=== PATIENT | female | born 1960 | race African-American/Black ===

== ENCOUNTER 2016-09-28 16:21 | Inpatient (IN) ==
[2016-09-28] MEDS ORDERED: ASPIRIN PO STA (17:20)
[2016-09-28 17:43] LABS: BASO% 0.4 % (0.0-0.8); EOS# 0.49 X1000 (0.0-0.7); EOS% 6.6 % (0.0-10.0); HEMATOCRIT 32.7 % (37.0-47.0); HEMOGLOBIN 10.4 g/dL (12.0-16.0); LYMPH# 1.65 X1000 (1.2-3.4); LYMPH% 22.2 % (20.5-51.1); MANUAL DIFF NEEDED? NO; MCH 23.8 PG (27-31); MCHC 31.8 g/dL (33-37); MCV 74.8 FL (81-99); MONO# 0.46 X1000 (0.11-0.59); MONO% 6.2 % (1.7-9.3); NEUT% 64.6 % (42.2-75.2); PLT 214 X1000 (130-400); RBC 4.37 XMIL (4.2-5.4)
[2016-09-28 17:49] LABS: INR 1.02; PROTIME 10.7 Seconds (9.2-11.7); PTT 25.6 Seconds (22.0-36.0)
[2016-09-28 17:56] LABS: ALBUMIN 3.8 g/dL (3.5-5.0); CALCIUM 9.4 mg/dL (8.8-10.2); MAGNESIUM 2.1 mg/dL (1.5-2.7); POTASSIUM 4.1 mmol/L (3.5-5.1); TOTAL BILIRUBIN 0.57 mg/dL (0.20-1.00); TOTAL PROTEIN 6.7 g/dL (6.3-8.3)
[2016-09-28] MEDS ORDERED: LASIX IV ONE ×2 (18:44→19:09)
--- NOTE | 2016-09-28 19:05 | Diag Imaging Result Doc PS360 ---
EXAM: CHEST-2 VIEWS HISTORY: SOB TECHNIQUE: PA and lateral COMMENT: There is cardiomegaly and pulmonary vascular prominence. This has not changed significantly since 09/17/2016. There is interstitial fibrosis and coarser fibrotic scar formation in the left upper lobe and right lower lobe. Overall there has been no significant change in the appearance of the chest since 11/22/2015. IMPRESSION: Stable chest. Electronically signed by Kenney Jones 09/28/2016 7:03 PM
[2016-09-28] MEDS ORDERED: NITROGLYCERIN TOP ONE (19:07)
[2016-09-28] MEDS ORDERED: XANAX PO PRN (22:01)
[2016-09-28] MEDS ORDERED: ZOFRAN IV PRN (22:01)
[2016-09-28] MEDS ORDERED: TYLENOL PO PRN (22:01)
[2016-09-28] MEDS ORDERED: APRESOLINE IV PRN (22:56)
[2016-09-28] MEDS: COREG PO SCH (23:39)
[2016-09-28] MEDS: AMBIEN PO SCH (23:39)
[2016-09-28] MEDS: DESYREL PO SCH (23:42)
--- NOTE | 2016-09-29 03:46 | HISTORY AND PHYSICAL ---
CHIEF COMPLAINT: Shortness of breath. HISTORY OF PRESENT ILLNESS: Briefly, this is a 56-year-old female with hypertension, diabetes, end-stage renal, who presents with progressive shortness of breath for the last several days. She has been to the ER. She was in the ER about a week ago, and thought to have bronchitis. I think she saw Dr. Albert aguilera, and she was given an IM dose of antibiotic. She felt she was volume overloaded. She has been getting dialysis. She has not missed any treatments. As far she knows, she has not had any change in her dialysis duration or amount of fluid taken off. She says in fact she has lost some weight. She came in today for evaluation. Really, workup was pretty unremarkable, except her blood pressure was a little bit elevated, but really not that bad. Her saturations were okay. Her chest x-ray is stable. She has some cardiomegaly and some pulmonary vascular congestion. I think she saw Dr. Gloria, and he told her to come in and get evaluated. She was due apparently to see the feather shaper on the . There was some discussion of putting in, I do not know if it is a pacemaker or defibrillator, but at this point, it was not a planned event at this point. In any case, patient had some degree of volume overload on x-ray and was symptomatic. She does report orthopnea, paroxysmal nocturnal dyspnea, increasing lower extremity edema, and she was admitted for volume overload issues related to her kidney failure, possibly some underlying heart failure. She does have some mild systolic heart failure, combined with diastolic failure most likely, because she has got significant left ventricular hypertrophy per her echo in October of last year. PAST MEDICAL HISTORY: 1. End-stage renal. 2. Hypertension. 3. Diabetes. PAST SURGICAL HISTORY: She has had a hysterectomy. FAMILY HISTORY: Mother and father had CHF issues. ALLERGIES: Docusate. MEDICATIONS: She is on Xanax 0.5 b.i.d., Norvasc 10 daily, Coreg 6.25 b.i.d., hydralazine 50 daily, Lantus 40 daily, Humalog 5 t.i.d., Imdur 30 daily, Reglan 10 daily, Protonix 40 daily, Desyrel 50 at bedtime, Ambien 5 mg at bedtime. REVIEW OF SYSTEMS: Otherwise negative times a 10-point review of systems. PHYSICAL EXAMINATION: VITAL SIGNS: Blood pressure currently 156/82, heart rate of 82, respiratory rate 18, temperature 97.9 degrees, 99% on room air. CARDIOVASCULAR: Regular rate and rhythm. PULMONARY: Bilateral breath sounds. Clear to auscultation. GASTROINTESTINAL: Soft, nontender, nondistended. Bowel sounds were positive. LABORATORY DATA: White count of 7. Hemoglobin and hematocrit 10 and 32, platelets 214,000. Coagulation studies were normal. BUN and creatinine 29 and 7.1. Glucose of 275. ProBNP of 23,668. Her CPK was normal. Her troponin was mildly elevated. ASSESSMENT: This is a 56-year-old female, end-stage renal, presenting with shortness of breath and a mild pulmonary edema and vascular congestion. 1. Volume overload, pulmonary edema. She was given high-dose Lasix in the ER, but really has not had much urine output. I think she got a total of it looks like 300 mg. Obviously, she will need dialysis, which her usual day is tomorrow, so she will get dialyzed per Dr. Gloria. He has been consulted, and will evaluate for other issues. She may have some diastolic and systolic heart failure. I am going to repeat her echocardiogram, trend her enzymes, monitor on telemetry, and we will follow. 2. Diabetes. Continue her regular medications. Monitor her blood sugars. Check an A1c. Continue sliding scale insulin. 3. Hypertension. I am going to go up on her hydralazine to 50 b.i.d. 4. Anemia, likely related to chronic renal disease. We will continue to monitor. It is not any lower than it has been previously, so I do not think that is really contributing very much. It is certainly not low enough to consider transfusion. DISPOSITION: Pending her multiple issues. cc: MD Ankush Villatoro MD Dr. Thomas
[2016-09-29] MEDS: HUMALOG SUBQ SCH ×3 (06:32→16:15)
[2016-09-29] MEDS: PROTONIX PO SCH (06:34)
[2016-09-29] MEDS: HUMULIN R SUBQ SCH ×4 (06:35→21:05)
[2016-09-29 07:04] LABS: HEMATOCRIT 32.7 % (37.0-47.0); HEMOGLOBIN 10.2 g/dL (12.0-16.0); MCH 23.8 PG (27-31); MCHC 31.2 g/dL (33-37); MCV 76.2 FL (81-99); PLT 210 X1000 (130-400); RBC 4.29 XMIL (4.2-5.4)
[2016-09-29 07:12] LABS: IRON SATURATION 21 %; TIBC 190 ug/dL; TOTAL IRON 39 ug/dL (49-151); UNBOUND IRON 151 ug/dL (112-346)
[2016-09-29 07:15] LABS: CALCIUM 9.5 mg/dL (8.8-10.2); POTASSIUM 4.8 mmol/L (3.5-5.1)
[2016-09-29 07:18] LABS: HEMOGLOBIN A1C 9.2 % (4.8-6.0)
[2016-09-29] MEDS ORDERED: TIGHT: 0.2 ML/HR MISC PRN (08:14)
[2016-09-29] MEDS ORDERED: HEPARIN IV PRN (08:14)
[2016-09-29] MEDS ORDERED: NS 2,000 ML MISC PRN (08:14)
[2016-09-29] MEDS ORDERED: APRESOLINE PO SCH (09:00)
[2016-09-29] MEDS ORDERED: REGLAN PO SCH (09:00)
[2016-09-29] MEDS ORDERED: NS 2,000 ML ONE (09:34)
[2016-09-29] MEDS ORDERED: HEPARIN ONE (09:34)
[2016-09-29] MEDS: COREG PO SCH ×2 (11:27→21:58)
[2016-09-29] MEDS: APRESOLINE PO SCH ×2 (11:27→21:57)
[2016-09-29] MEDS: LANTUS SUBQ SCH (11:28)
[2016-09-29] MEDS: NORVASC PO SCH (11:28)
[2016-09-29] MEDS: IMDUR PO SCH (11:28)
--- NOTE | 2016-09-29 14:48 | PROGRESS NOTE ---
DATE: 09/29/2016 SUBJECTIVE: The patient is sitting up in bed. She states that she is hungry. OBJECTIVE: Vital Signs: Temperature 98.3 degrees, blood pressure 147/88, heart rate 74, respirations 20, O2 saturations 98% on 2 L nasal cannula. General: This is a morbidly obese female, sitting up in bed, in no acute distress. Head: Normocephalic, atraumatic. Heart: S1, S2. Normal. Regular rate and rhythm. Lungs: Equal air entry bilaterally. Abdomen: Positive bowel sounds. Soft, obese, nontender, nondistended. Extremities: +1 edema. No cyanosis. No calf tenderness. Neurologic: The patient is alert and oriented x3. LABORATORY DATA: White blood cell count 9, hemoglobin 10, hematocrit 32, platelets 210,000. Sodium 135, potassium 4.8, chloride 95, CO2 of 25. BUN 37, creatinine 8.2, glucose 218. ASSESSMENT AND PLAN: 1. Volume overload. This will be addressed during dialysis. 2. End-stage renal disease. Management as per the shipping hand. 3. Diabetes mellitus, type 2, uncontrolled. Continue on Lantus plus sliding scale insulin. 4. Hypertension, controlled. Continue on the current antihypertensives. 5. Morbid obesity, aware. 6. Gastroesophageal reflux disease. Continue on Protonix. 7. Deep vein thrombosis prophylaxis. I will start the patient on heparin 5000 units subcutaneous every 12 hours. cc: Kianna Patterson MD
--- NOTE | 2016-09-29 18:03 | CONSULTATION ---
DATE OF CONSULTATION: 09/29/2016 REASON FOR CONSULTATION: Assistance with management. HISTORY OF PRESENT ILLNESS: Ms. El is a 56-year-old black female who is on chronic hemodialysis for management of end stage kidney disease associated with diabetes and hypertension. She has been complaining of shortness of breath and we have attempted to lower her dry weight at the outpatient center but she has had limitations based on cramping. Her symptoms have persisted but she does not have chest pain or palpitations. She came to the hospital at [place] and I directed her to [facility] where she was admitted. She had dialysis this morning that lowered her dry weight 1 kg. This was associated with significant cramping. However her breathing is better this afternoon. PAST MEDICAL HISTORY: As above. HOME MEDICATIONS: Include Xanax, Norvasc, Coreg, hydralazine, Lantus, Humalog, Imdur, Reglan, Protonix, Desyrel, Ambien. ALLERGIES: Docusate. FAMILY HISTORY: Positive for heart disease. SOCIAL HISTORY: Noncontributory. PHYSICAL EXAMINATION: Vital Signs: Blood pressure 130/93, heart rate 80, respirations 20. INCOMPLETE REPORT -- DICTATION ENDS HERE. cc: Ankush Gloria MD
--- NOTE | 2016-09-29 18:25 | CONSULTATION ---
DATE OF CONSULTATION: 09/29/2016 CONTINUATION: PHYSICAL EXAM: Skin: Warm and dry. HEENT: Conjunctivae are pink. Pupils are equal. Neck: Veins are not visible. Heart: Regular, with gallop. Lungs: Have equal breath sounds. No crackles or wheezes. Abdomen: Soft, nontender. Bowel sounds are present. Extremities: Have no edema, clubbing, or cyanosis. IMPRESSION: Pulmonary edema. We have attempted to address this with her dialysis prescription by increasing her ultrafiltration. She has had some symptomatic improvement. An echocardiogram has been ordered. I will increase her carvedilol to 12.5 mg b.i.d. to address any component of diastolic dysfunction. Otherwise she will have her next dialysis on Saturday. cc: Ankush Gloria MD
[2016-09-29] MEDS: AMBIEN PO SCH (20:29)
[2016-09-29] MEDS: HEPARIN SUBQ SCH (20:30)
[2016-09-29] MEDS: DESYREL PO SCH ×2 (20:33→21:57)
[2016-09-29 22:51] LABS: CALCIUM 9.1 mg/dL (8.8-10.2); MAGNESIUM 1.9 mg/dL (1.5-2.7); POTASSIUM 4.4 mmol/L (3.5-5.1)
[2016-09-30] MEDS: PROTONIX PO SCH (06:19)
[2016-09-30] MEDS: HUMALOG SUBQ SCH ×3 (06:19→16:18)
[2016-09-30] MEDS: HUMULIN R SUBQ SCH ×4 (06:21→21:29)
[2016-09-30 07:05] LABS: BASO% 0.4 % (0.0-0.8); EOS# 0.53 X1000 (0.0-0.7); EOS% 6.5 % (0.0-10.0); HEMATOCRIT 30.5 % (37.0-47.0); HEMOGLOBIN 9.7 g/dL (12.0-16.0); LYMPH# 1.97 X1000 (1.2-3.4); LYMPH% 24.2 % (20.5-51.1); MANUAL DIFF NEEDED? NO; MCH 23.9 PG (27-31); MCHC 31.8 g/dL (33-37); MCV 75.1 FL (81-99); MONO# 0.63 X1000 (0.11-0.59); MONO% 7.7 % (1.7-9.3); NEUT% 61.2 % (42.2-75.2); PLT 219 X1000 (130-400); RBC 4.06 XMIL (4.2-5.4)
[2016-09-30] MEDS ORDERED: INSULIN PEN NEEDLES ONE (07:33)
--- NOTE | 2016-09-30 07:36 | Diag Imaging Result Doc PS360 ---
EXAM: CHEST-PORTABLE HISTORY: dyspnea TECHNIQUE: AP portable 0500 COMMENT: There is cardiomegaly and increased central pulmonary vascularity. This has not changed significantly since 09/28/2016. There is improvement in the subsegmental atelectasis previously present in the left upper lobe. IMPRESSION: Improved platelike atelectasis in the left upper lobe. Otherwise stable. Electronically signed by Kenney Jones 09/30/2016 7:33 AM
[2016-09-30 07:53] LABS: ALBUMIN 3.5 g/dL (3.5-5.0); CALCIUM 9.2 mg/dL (8.8-10.2); POTASSIUM 4.2 mmol/L (3.5-5.1)
[2016-09-30] MEDS: IMDUR PO SCH (08:34)
[2016-09-30] MEDS: NORVASC PO SCH (08:34)
[2016-09-30] MEDS: COREG PO SCH ×2 (08:35→21:28)
[2016-09-30] MEDS: HEPARIN SUBQ SCH ×2 (08:35→21:27)
[2016-09-30] MEDS: APRESOLINE PO SCH ×2 (08:35→21:28)
[2016-09-30] MEDS: LANTUS SUBQ SCH (09:08)
--- NOTE | 2016-09-30 14:51 | CONSULTATION ---
DATE OF CONSULTATION: 09/30/2016 INDICATION: Nonsustained ventricular tachycardia. HISTORY OF PRESENT ILLNESS: Ms El is a pleasant 56-year-old black female with a history of a nonischemic cardiomyopathy, normally gets dialysis Saturday, , Saturday. She presented on the with complaints of worsening shortness of breath. She reports compliance with all of her medications including all of her dialysis sessions as far as the frequency as well as the duration. This symptom has worsened over the last several days. She last saw me in September 2015 and at that time, we rechecked her echocardiogram and she had improvement in her ejection fraction such that she was not any longer a candidate for an ICD. She since has continued on her medications. She has not had any chest pain. No palpitations during the course of the hospitalization. PAST MEDICAL HISTORY: Significant for: 1. Nonischemic cardiomyopathy. Her last echocardiogram was performed in October 2015. At that time, she had mild left ventricular hypertrophy. Her ejection fraction was noted to be in the 45-50% range. 2. History of ventricular tachycardia treated at [facility] in September 2013. 3. Hypertension. 4. Diabetes mellitus. 5. End-stage renal disease. 6. COPD. 7. Morbid obesity. 8. Sleep apnea. FAMILY HISTORY: Mother and father both had issues with congestive heart failure. SOCIAL HISTORY: Is significant for no alcohol use and I do not believe she currently smokes. REVIEW OF SYSTEMS: A 10-system review of systems is negative except for those things mentioned in HPI. PHYSICAL EXAMINATION: Vital signs: Afebrile, heart rate 77, blood pressure 122/61. Generally: No acute distress. HEENT: Oropharynx is moist. Poor dentition. Eye examination shows pink conjunctivae. White sclerae. Neck: Examination shows no obvious thyromegaly or thyroid tenderness. Cardiovascular: She is in a regular rate and rhythm. She has no obvious murmurs. She has no S3. She has no lower extremity edema. Chest: Sounds clear to auscultation bilaterally. She has no increased work of breathing. Abdomen: Soft, nontender, nondistended. No obvious organomegaly although exam is somewhat limited secondary to her obesity. Skin Exam: Warm and dry throughout without any rashes. Neurological: Moving all extremities well. No obvious lateralizing deficits. Psychiatric: Alert, oriented, pleasant. She has normal mood and affect. PERTINENT DATA: She had an EKG September 29 at 2211 showing sinus rhythm, rate of 77 beats per minute. No signs of acute ischemic changes. Subsequent EKG September 30 at 6:01 a.m. again shows sinus rhythm, no signs of acute ischemic changes or infarct. She had a 13-beat run of ventricular tachycardia occurring September 29 at 2136. Subsequently September 29 at 1944 she had a short 4-beat run. Laboratory data shows a white count 8.1, hematocrit 30.5, platelet count 219,000. Sodium 137, potassium 4.2, her BUN is 32, creatinine 7.5, her phosphorus level is 5.5, her magnesium level yesterday was 1.9. Cardiac enzymes showed troponin 0.102 on 2214 0.080 and 0.084 preceding and following the event. ASSESSMENT: 1. Nonsustained ventricular tachycardia in a patient with a history of nonischemic cardiomyopathy. 2. End-stage renal disease. PLAN: I agree with the escalation of the beta amparo. We will follow up on the echocardiogram. If this is unremarkable I would continue to treat this medically and titrate medications according to her blood pressure. She is currently on nitrates, hydralazine and a beta-amparo, which again has been escalated. cc: Tyrone El MD
--- NOTE | 2016-09-30 16:16 | ECHO REPORT ---
ORDER DATE: 09/29/2016 INDICATION: CHF. Morbid obesity. Hypertension. Diabetes. FINDINGS: 1. The right atrium is mildly enlarged at 4.5 cm. 2. Mild tricuspid regurgitation. RV systolic pressure of 45. 3. Normal RV size and systolic function. 4. No significant pulmonic insufficiency. 5. Moderate left atrial enlargement at 5.3 cm. 6. No mitral valve prolapse. There is a significant amount of calcification seen on the posterior mitral leaflet. There is actually a mass-like formation of it measuring 1.5 x 2 cm. This was noted to be present on the previous study. There is no evidence of aortic stenosis associated with this. Mild mitral regurgitation. 7. Left ventricle is dilated with an end-diastolic dimension of 6 cm. The posterior and interventricular septal wall thickness 1.2 and 1.4 cm respectively suggesting mild left ventricular hypertrophy. There does appear to be reduced ejection fraction with a calculated EF of 43% and mild global hypokinesis. This was a very difficult study. I would consider an alternative study such as a MUGA to evaluate EF. 8. Aortic valve appears to be calcified. Again, there is a significant masslike calcification on the noncoronary cusp measuring 1.2 x 1.9 cm. This may be a healed vegetation. There does appear to be a degree of mild aortic stenosis present with a peak gradient of 34, mean of 18 and a valve area of 1.7 cm2 by the continuity equation. There is mild aortic insufficiency. 9. Aorta appears normal in visualized segments. 10. No pericardial effusion identified. cc: MD Deondre Sheridan MD
--- NOTE | 2016-09-30 17:36 | PROGRESS NOTE ---
DATE: 09/30/2016 SUBJECTIVE: The patient is resting comfortably in bed. She denies having any shortness of breath or chest pain overnight. The patient did have a 13 beat run of ventricular tachycardia overnight. She was asymptomatic at this time. OBJECTIVE: Vital Signs: Temperature 98.4 degrees, blood pressure 122/61, heart rate 77, respirations 20, O2 saturation is 100% on 2 L nasal cannula. General: This is a morbidly obese female, lying in bed, in no acute distress. Head: Normocephalic, atraumatic. Heart: S1, S2. Normal. Regular rate and rhythm. Lungs: Equal air entry bilaterally. No crackles. No rales. Abdomen: Positive bowel sounds. Soft, obese, nontender, nondistended. Extremities: Trace pedal edema. No cyanosis. No calf tenderness. Neurologic: The patient is alert and oriented x3. LABS: White blood cell count 8.1, hemoglobin 9.7, hematocrit 30, platelets 219,000. Sodium 137, potassium 4.2, chloride 93, CO2 26, BUN 32, creatinine 7.5, glucose 162, calcium 9.2, phosphorus 5.5. ASSESSMENT AND PLAN: 1. Volume overload. This will be addressed during dialysis. 2. Nonsustained ventricular tachycardia. The patient's electrolytes appear to be within normal limits. The patient is also on a beta amparo. Will consult cardiology for further recommendations. 3. End-stage renal disease. Management as per the barker peeler. 4. Morbid obesity. Aware. 5. Diabetes mellitus type 2. Continue on Lantus and sliding scale insulin. 6. Hypertension. Continue on the current antihypertensives. 7. Anxiety disorder. Continue on p.r.n. Xanax. 8. Deep vein thrombosis prophylaxis. Continue on heparin 5000 units subcutaneous every 12 hours. cc: Kianna Patterson MD
[2016-09-30] MEDS: AMBIEN PO SCH (21:27)
[2016-09-30] MEDS: REGLAN PO SCH (21:28)
[2016-09-30] MEDS: DESYREL PO SCH (21:28)
--- NOTE | 2016-10-01 05:40 | EKG Report ---
Test Performed on : 09/29/2016 10:11:51 PM Test Reason : Run of V-Tach per telemetry Blood Pressure : / mmHG Vent. Rate : 077 BPM Atrial Rate : 077 BPM P-R Int : 160 ms QRS Dur : 092 ms QT Int : 412 ms P-R-T Axes : 047 -50 034 degrees QTc Int : 466 ms Normal sinus rhythm. Possible Left atrial enlargement Left axis deviation Possible Anterior infarct (cited on or before 18-NOV-2013) Abnormal ECG When compared with ECG of 28-SEP-2016 16:38, No significant change was found Confirmed by Bronson James MD ([id number]) on 10/01/2016 10:55:37 AM
--- NOTE | 2016-10-01 05:45 | EKG Report ---
Test Performed on : 09/30/2016 06:01:10 AM Test Reason : Elevated Troponin Blood Pressure : / mmHG Vent. Rate : 074 BPM Atrial Rate : 074 BPM P-R Int : 168 ms QRS Dur : 098 ms QT Int : 426 ms P-R-T Axes : 037 -48 030 degrees QTc Int : 472 ms Normal sinus rhythm. Left axis deviation Possible Anterior infarct (cited on or before 18-NOV-2013) Abnormal ECG When compared with ECG of 29-SEP-2016 22:11, (Unconfirmed) No significant change was found Confirmed by Bronson James MD ([id number]) on 10/01/2016 10:55:56 AM
[2016-10-01] MEDS: HUMALOG SUBQ SCH ×3 (06:25→16:26)
[2016-10-01] MEDS: PROTONIX PO SCH (06:25)
[2016-10-01] MEDS: HUMULIN R SUBQ SCH ×4 (06:25→21:56)
--- NOTE | 2016-10-01 07:19 | Diag Imaging Result Doc PS360 ---
EXAM: CHEST-PORTABLE INDICATION: dyspnea COMPARISON: 09/30/2016 FINDINGS: Pulmonary venous congestion and mild interstitial edema appears to have marginally improved. Mild left upper lobe atelectasis is unchanged. No new consolidations are identified. Cardiac silhouette is stable. IMPRESSION: Stable chest. Electronically signed by Justo Eli 10/01/2016 7:17 AM
[2016-10-01 07:28] LABS: BASO% 0.4 % (0.0-0.8); EOS# 0.47 X1000 (0.0-0.7); EOS% 6.5 % (0.0-10.0); HEMATOCRIT 29.4 % (37.0-47.0); HEMOGLOBIN 9.4 g/dL (12.0-16.0); LYMPH# 2.07 X1000 (1.2-3.4); LYMPH% 28.8 % (20.5-51.1); MANUAL DIFF NEEDED? YES; MCH 23.7 PG (27-31); MCV 74.2 FL (81-99); MONO% 6.9 % (1.7-9.3); NEUT% 57.4 % (42.2-75.2); PLT 224 X1000 (130-400); RBC 3.96 XMIL (4.2-5.4)
[2016-10-01 07:32] LABS: ALBUMIN 3.3 g/dL (3.5-5.0); POTASSIUM 4.4 mmol/L (3.5-5.1)
[2016-10-01] MEDS ORDERED: NS 2,000 ML MISC PRN (08:18)
[2016-10-01 08:40] LABS: EOS 4 % (1-10); HYPOCHROM 1+; LYMPHS 40 % (21-51); MONO 8 % (1-9)
[2016-10-01] MEDS: LANTUS SUBQ SCH (11:28)
[2016-10-01] MEDS: IMDUR PO SCH (11:28)
[2016-10-01] MEDS: HEPARIN SUBQ SCH ×2 (11:28→21:56)
[2016-10-01] MEDS: APRESOLINE PO SCH ×2 (11:28→21:56)
[2016-10-01] MEDS: NORVASC PO SCH (11:28)
[2016-10-01] MEDS: COREG PO SCH ×2 (11:28→21:56)
--- NOTE | 2016-10-01 12:01 | PROGRESS NOTE ---
DATE: 10/01/2016 SUBJECTIVE: Patient currently undergoing hemodialysis. She is currently on room air and having no difficulty breathing. OBJECTIVE: Vital Signs: Temperature 98.1 degrees, pulse 73, respiratory rate 16, blood pressure 129/67, intake 1.6 L. Output 100 mL. PHYSICAL EXAMINATION: General: This is a middle-aged female, sitting up in bed. No acute distress. HEENT: Normocephalic, atraumatic. Conjunctivae are pink. Oral mucosa moist. Neck: Supple. Trachea midline. Unable to discern JVD. Cardiovascular: Regular rate and rhythm. S4. Pulmonary: Equal excursion. She is clear bilaterally with no adventitious breath sounds. No increased work of breathing on room air. Abdomen: Soft with positive bowel sounds. Extremities: Trace pretibial edema. No clubbing or cyanosis. Is moving all extremities without difficulty. The AV fistula currently accessed. Integumentary: Skin is warm and dry without overt rash or lesion. LAB DATA: WBC of 7.2, hemoglobin 9.4. Sodium 136, potassium 4.4, CO2 25, BUN 45, creatinine 10.2. IMAGING: Pulmonary edema noted on chest x-ray. ASSESSMENT AND PLAN: Pulmonary edema. We have been trying to decrease her dry weight and remove additional fluid. This has been hampered by severe cramping. We will again try today to remove UF only with a goal of 4-6 L. Unclear if we will be able to achieve this measure. We will plan for her routine dialysis on Saturday. Seen, data reviewed, discussed with Cali Diana on 10/01/16. I agree with the above assessment and plan of care. rg Dictated by YANNI Nguyen for Ankush Gloria MD cc: Ankush Gloria MD [facility]
--- NOTE | 2016-10-01 15:01 | PROGRESS NOTE ---
DATE: 10/01/2016 SUBJECTIVE: She reports she is feeling better. She underwent dialysis this morning. OBJECTIVE: Vital signs: Afebrile, heart rate 60s to 70s. Blood pressure 126/68. Generally: No acute distress. Cardiovascular: She sounds to be in a regular rate and rhythm. She has no obvious murmurs. She has no S3. She has no lower extremity edema. Chest: Sounds clear, but very distant. Abdomen: Soft, nontender, nondistended. She has no obvious organomegaly. PERTINENT DATA: Her white count is 7.2, hematocrit 29.4, platelet count is 224,000. Her sodium is 136, potassium is 4.4, BUN 45, creatinine 10.2. ProBNP was 22,253. Telemetry has not shown any further episodes of nonsustained ventricular tachycardia. ASSESSMENT: 1. Nonsustained ventricular tachycardia. 2. Mildly reduced ejection fraction. PLAN: Her echocardiogram demonstrated an EF of around 43%. This is roughly stable. I would likely recommend a MUGA as an outpatient to further evaluate her ejection fraction when she gets discharged home. I have no further recommendations at this point. She has had an escalation in her beta-amparo which I would agree with. cc: Tyrone El MD
--- NOTE | 2016-10-01 16:56 | PROGRESS NOTE ---
DATE: 10/01/2016 SUBJECTIVE: The patient is breathing more comfortably. Does not seem to be having any major issues. OBJECTIVE: Vital signs: Blood pressure 126/68, heart rate 67, respiratory rate 20, temperature 98 degrees, 100% on room air. Cardiovascular: Regular rate and rhythm. Pulmonary: Bilateral breath sounds. Diminished at the bases. GI: Soft, nontender, nondistended. Bowel sounds are positive. Extremities: No clubbing or cyanosis. Lymphatics: No peripheral edema. Neurological: Nonfocal. PROBLEM LIST: 1. Volume overload. Congestive heart failure exacerbation. Continue dialysis for fluid removal. 2. Nonsustained ventricular tachycardia. Cardiology was consulted. Agreed with beta amparo, nitrates, hydralazine and follow clinically. DISPOSITION: I think she is probably getting pretty close to going home. I would think by tomorrow if no major issues I would consider sending her home. Her BNP is still quite elevated but she is a dialysis patient. I am not sure how much we can push that and we will follow clinically. cc: Deondre Nunn MD
[2016-10-01] MEDS: REGLAN PO SCH (21:55)
[2016-10-01] MEDS: DESYREL PO SCH (21:56)
[2016-10-01] MEDS: AMBIEN PO SCH (21:56)
[2016-10-02 06:50] LABS: ALBUMIN 3.5 g/dL (3.5-5.0); CALCIUM 8.9 mg/dL (8.8-10.2); POTASSIUM 4.8 mmol/L (3.5-5.1)
[2016-10-02] MEDS ORDERED: TIGHT: 0.2 ML/HR MISC PRN (06:50)
[2016-10-02] MEDS ORDERED: HEPARIN IV PRN (06:50)
[2016-10-02] MEDS ORDERED: NS 2,000 ML MISC PRN (06:50)
[2016-10-02] MEDS: HUMALOG SUBQ SCH ×2 (07:45→13:23)
[2016-10-02] MEDS: HUMULIN R SUBQ SCH ×2 (07:45→13:23)
[2016-10-02] MEDS: PROTONIX PO SCH (07:45)
[2016-10-02] MEDS ORDERED: HEPARIN ONE (08:40)
[2016-10-02] MEDS ORDERED: NS 2,000 ML ONE (08:40)
--- NOTE | 2016-10-02 08:59 | PROGRESS NOTE ---
DATE: 10/02/2016 SUBJECTIVE: Patient resting in bed. She states that she is having no difficulty breathing. She remains on room air. She states that she did have significant cramping after her dialysis treatment yesterday. OBJECTIVE: Vital Signs: Temperature 98.3 degrees, pulse 68, respiratory rate 15, blood pressure 109/66. Intake 580 mL. Output 4 L. Physical Examination: General: This is a middle-aged, female , resting in bed. She is awake and alert. No acute distress. HEENT: Normocephalic, atraumatic. LISA. Oral mucosa moist. Neck: Supple. Trachea midline. Unable to discern JVD. Cardiovascular: Reveals a regular rate and rhythm. She has an S4. Pulmonary: She has equal excursion. There is no rhonchi or wheeze noted. She remains on room air. She has no increased work of breathing. Abdomen: Soft, obese, positive bowel sounds. : Not inspected. She has minimal void with hemodialysis assist. Extremities: There is no clubbing or cyanosis. She continues with trace to 1+ pretibial edema. She is moving all extremities. She is ambulatory to the bathroom without assistance. Integumentary: Skin is warm and dry without rash or lesion. Lab Data: Sodium 133, potassium 4.8, CO2 23, BUN 63, creatinine 11.5. ASSESSMENT AND PLAN: 1. End-stage renal disease management. Today is her routine dialysis day. We will dialyze her on a 2 K bath/UF as tolerated, continue to challenge dry weight/4 hour treatment. 2. Hypertension, controlled. 3. Electrolytes, in target. 4. Pulmonary edema. See #1 for plan. OK for discharge after dialysis today. rg Seen, data reviewed, discussed with Cali Diana on 10/02/16. I agree with the above assessment and plan of care. rg Dictated by YANNI Nguyen for Ankush Gloria MD cc: Ankush Gloria MD [facility]
[2016-10-02 13:22] VITALS: BP 118/67
[2016-10-02] MEDS: NORVASC PO SCH (13:24)
[2016-10-02] MEDS: IMDUR PO SCH (13:24)
[2016-10-02] MEDS: LANTUS SUBQ SCH (13:24)
[2016-10-02] MEDS: APRESOLINE PO SCH (13:24)
[2016-10-02] MEDS: COREG PO SCH (13:24)
[2016-10-02] MEDS: HEPARIN SUBQ SCH (13:24)
--- NOTE | 2016-10-02 18:19 | DISCHARGE SUMMARY ---
ADMISSION DATE: 09/28/2016 DISCHARGE DATE: 10/02/2016 CONSULTATIONS: 1. Ankush Gloria MD with Nephrology. 2. Tyrone El MD with Cardiology. PERTINENT PROCEDURES: 1. Chest x-ray shows stable chest. 2. Echocardiogram: EF of 43% with mild global hypokinesis. There is a significant calcification on the noncoronary cusp measuring 1.2 x 1.9 cm. This may be healed vegetation. There does appear to be a degree of mild aortic stenosis present. DISCHARGE DIAGNOSES: 1. Nonsustained ventricular tachycardia. Echocardiogram demonstrated an EF around 43%. Cardiology recommended a MUGA scan as an outpatient for further evaluation of her EF when she gets discharged home. 2. Fluid volume overload resolved with hemodialysis. 3. End-stage renal disease. Continue with regular scheduled hemodialysis. 4. Morbid obesity. Aware. 5. Diabetes mellitus type 2. Continue with patient's home medications. 6. Hypertension. Continue antihypertensive control. 7. Anxiety disorder. Continue Xanax. HOSPITAL COURSE: Ms. El is a 56-year-old female with hypertension, diabetes mellitus type 2, end-stage renal disease on hemodialysis followed by Dr. Gloria. Patient presented to the ED with progressive shortness of breath. She had recently been to the ED a week prior to her admission and thought to have bronchitis. She saw her primary doctor, Dr. Price, and was given IM dose of antibiotics. She felt she was volume overloaded. She has been getting her dialysis. She has not missed any treatments. As far she knows there were no changes in her dialysis duration or the amount of fluid taken off. Her workup in the ED was pretty unremarkable except her blood pressure had been elevated. Her saturations were good. Her chest x-ray was stable but it did show some pulmonary vascular congestion. The patient was admitted for fluid volume overload. She was given high-dose Lasix in the ED with not much urine output. Dr. Gloria was consulted. She was resumed on her hemodialysis. Her echocardiogram was repeated while patient was here and she did have a run of nonsustained ventricular tachycardia. Cardiology was consulted. She had an escalation of her beta-amparo. Her new echocardiogram demonstrated an EF of around 43%, however, Cardiology recommended a MUGA scan as outpatient for further evaluation after discharge. The patient had been evaluated while she was in hemodialysis today. She is appropriate for discharge after she finishes her dialysis DISCHARGE VITAL SIGNS: Temperature is 98.2 degrees, heart rate 68, respirations 15, blood pressure 109/66, O2 is 100% on room air. DISCHARGE DIET: Renal. DISCHARGE MEDICATIONS PER DR. NUNN: 1. Xanax 0.5 mg p.o. b.i.d. 2. Norvasc 10 mg p.o. daily. 3. Coreg 12.5 mg p.o. b.i.d. 4. Apresoline 50 mg p.o. b.i.d. 5. Lantus 40 units subcutaneous q.a.m. 6. Humalog 5 units subcutaneously t.i.d. as directed. 7. Isosorbide mononitrate ER 30 mg p.o. daily. 8. Reglan 10 mg p.o. daily. 9. Protonix 40 mg p.o. daily. 10. Trazodone 50 mg p.o. at bedtime. 11. Ambien 5 mg p.o. at bedtime. FOLLOWUP: 1. The patient will follow up with her primary care physician, Dr. Albert Murry , in 1-[address] Tyrone El for outpatient MUGA scan. Patient can return to the ED for any worsening of symptoms. 2. Patient will also need to resume her regularly scheduled hemodialysis. DISCHARGE TIME: 30 minutes. Dictated by YANNI Gray for Deondre Nunn MD cc: MD Albert Villatoro M.D. pt examined, agree with above APENOT MTDD
--- NOTE | 2016-10-08 04:41 | PROVIDER DOCUMENTATION ---
This chart was entered by Dallin Tamayo Scribe, acting as scribe for Guero Govea MD. HPI-Respiratory General - General Chief Complaint: Shortness of Breath Stated Complaint: SOB Time Seen by Provider: 09/28/16 18:55 Source: patient Allergies/Adverse Reactions: Patient Allergies Allergy/AdvReac Type Severity Reaction Status Date / Time docusate sodium * Allergy Intermediate RASH Verified 09/28/16 17:52 [From [facility]] Home Medications: Home Medication List Medication Instructions Recorded Confirmed Last Taken Type Alprazolam [Xanax] 0.5 mg PO BID PRN 09/18/13 09/28/16 01/07/16 History Isosorbide Mononitrate E.r. [Imdur] 30 mg PO DAILY 09/18/13 09/28/16 01/08/16 History Metoclopramide [Reglan] 10 mg PO DAILY 09/18/13 09/28/16 01/08/16 History Pantoprazole [Protonix] 40 mg PO DAILY@0700 09/18/13 09/28/16 01/08/16 History Amlodipine Besylate [Norvasc] 10 mg PO DAILY 09/11/15 09/28/16 01/08/16 History Trazodone [Desyrel] 50 mg PO QHS 11/21/15 09/28/16 11/20/15 History Zolpidem Tartrate 5 mg PO QHS 11/21/15 09/28/16 11/20/15 History Insulin Glargine [Lantus] 40 unit SUBQ QAM #1 insuln.pen 11/23/15 09/28/1601/07 Rx Insulin Lispro [Humalog] 5 unit SQ TID AC #1 cartridge 11/23/15 09/28/16 Rx Carvedilol [Coreg] 12.5 mg PO BID #60 tablet 10/02/16 Unknown Rx Hydralazine [Apresoline] 50 mg PO BID #60 tablet 10/02/16 Unknown Rx - History of Present Illness-Resp Nature of Presenting Problem: Pt is a 56 yof who presents to ER with CC of shortness of breath and orthopnea for 1 month. Pt is a // dialysis pt with hx of diabetes and reports that she went to dialysis yesterday, but states "they must not've taken enough fluids off." Pt also reports that she was seen at [facility] "several weeks ago" for the same, and found nothing. Pt reports that lasix do not work for her and only dialysis has been able to pull off her excess fluid. Quality of Pain: reports: other (short of breath) Severity in ED: reports: mild Onset/Duration: reports: other (1 month) Timing: reports: still present Associated Symptoms: reports: chest pain/soreness, cough, shortness of breath, short of breath, other (orthopnea). denies: dizziness, fever/chills, flu-like symptoms, lightheadedness, muscle/bodyaches, nasal congestion, nasal drainage, sinus pain, sore throat, sweaty, wheezing Similar Symptoms Previously?: Yes Recently seen or treated by another doctor?: Yes Review of Systems - Adult - REVIEW OF SYSTEMS - ADULT Constitutional: denies: chills, fever, fatique, night sweats, weight gain, weight loss Eyes: reports: no symptoms reported Ears, Nose, Mouth & Throat: reports: no symptoms reported Cardiovascular: reports: chest pain (on deep inspiration/expiration), orthopnea . denies: edema, heart murmur, irregular heart rate, palpitations, poor circulation, PND, syncope Respiratory: reports: dyspnea on exertion, shortness of breath, other (orthopnea ). denies: chronic cough, cough, excessive sputum production, hemoptysis, pleurisy, wheezing Gastrointestinal: reports: no symptoms reported Genitourinary: reports: no symptoms reported Musculoskeletal: reports: no symptoms reported Integumentary: reports: no symptoms reported Neurological: reports: no symptoms reported Psychiatric: reports: no symptoms reported Endocrine: reports: no symptoms reported Hematologic/Lymphatic: reports: no symptoms reported Allergic/Immunologic: reports: no symptoms reported All Other Systems: Reviewed and Negative Past History - Adult - PAST MEDICAL HISTORY-ADULT Review of Records: reports: Nursing Assessment Review, Medications Reviewed Cardiovascular: reports: CHF, HTN Respiratory: reports: asthma, COPD Genitourinary: reports: dialysis, ESRD, kidney disease Endocrine/Immune: reports: Diabetes, thyroid disorder - PRIOR SURGERIES/PROCEDURES Surgical/Procedure History: reports: hysterectomy, other (dialysis fistula) - IMMUNIZATION STATUS Childhood Immunizations: See Nurse Assessment Flu Vaccine: See Nurse Assessment - FAMILY HISTORY Family History: reviewed, not pertinent Physical Exam-General - PHYSICAL EXAM-ADULT Initial Vital Signs Reviewed: Yes - CONSTITUTIONAL General Appearance: appears well, alert, mild distress, obese - EYES Eyes: PERRL/EOMI, pink conjunctivae - HEAD, EARS, NOSE, MOUTH & THROAT HENMT: normocephalic/atraumatic, moist mucous membranes, normal ENT inspection, TMs normal, pharynx normal - NECK Neck: non-tender, full range of motion, supple, normal inspection. negative: C- spine tenderness, limited range of motion, lymphadenopathy - RESPIRATORY Respiratory: chest non-tender, lungs clear, no pleuratic chest pain, no respiratory distress, no accessory muscle use, decreased breath sounds. negative: normal breath sounds, rhonchi - CARDIOVASCULAR Cardiovascular: normal peripheral pulses, regular rate, rhythm. negative: bradycardia, tachycardia, irregularly irregular - GASTROINTESTINAL (ABDOMEN) Abdominal Exam: normal bowel sounds, non tender, soft, no organomegaly, no pulsatile mass. negative: distended, tenderness - MUSCULOSKELETAL Back Exam: normal inspection, no CVA tenderness, no vertebral tenderness. negative: CVA tenderness, decreased range of motion, vertebral tenderness Extremity: normal range of motion, non-tender, normal gait, normal inspection, no calf tenderness, normal capillary refill, pedal edema, swelling. negative: no pedal edema, deformity, erythema, inflammation, tenderness - SKIN Integumentary: normal color, normal turgor, warm/dry, swelling. 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 negative: facial droop, focal weakness, motor weakness, sensory deficit - PSYCHIATRIC Psych/Mental Status: normal mood/affect, normal thought content, normal thought process, oriented x 3 Progress - PLAN OF CARE/RESULTS Progress/Plan/Lab Results: Orders Category Date Time Status Admit - [facility] Routine AdmDCTranf 09/28/16 22:01 Ordered Activity - Bed Rest with BRP ORDERED Care 09/28/16 22:01 Completed Neurological Check Q4H Care 09/28/16 22:01 Completed Vital Signs Order Q 8-HR .ASSESS Care 09/28/16 22:01 Active CHEST-2 VIEWS [RAD] Stat Exams 09/28/16 17:20 Completed CBC WITH ELECTRONIC DIFF [HEME] Stat Lab 09/28/16 17:34 Completed CK PROFILE [SP CHEM] Stat Lab 09/28/16 17:34 Completed COMPREHENSIVE METABOLIC PANEL [CHEM] Stat Lab 09/28/16 17:34 Completed D-DIMER [CHEM] Stat Lab 09/28/16 17:34 Completed MAGNESIUM [CHEM] Stat Lab 09/28/16 17:34 Completed PRO B-NATRIURETIC PEPTIDE Stat Lab 09/28/16 17:34 Completed PROTIME WITH INR [COAG] Stat Lab 09/28/16 17:34 Completed PTT [COAG] Stat Lab 09/28/16 17:34 Completed TROPONIN T Stat Lab 09/28/16 17:34 Completed Acetaminophen [Tylenol] Med 09/28/16 22:01 Discontinued 650 mg PO Q6H PRN PRN Alprazolam [Xanax] Med 09/28/16 22:01 Discontinued 0.5 mg PO BID PRN PRN Amlodipine [Norvasc] Med 09/29/16 09:00 Discontinued 10 mg PO DAILY Aspirin Med 09/28/16 17:20 Discontinued 325 mg PO STAT STA Carvedilol [Coreg] Med 09/28/16 22:01 Discontinued 6.25 mg PO BID Furosemide [Lasix] Med 09/28/16 18:44 Discontinued 100 mg IV NOW ONE Furosemide [Lasix] Med 09/28/16 19:09 Discontinued 200 mg IV NOW ONE Hydralazine [Apresoline] Med 09/29/16 09:00 Discontinued 50 mg PO DAILY Insulin Glargine [Lantus] Med 09/29/16 09:00 Discontinued 40 unit SUBQ QAM Insulin Lispro [Humalog] Med 09/29/16 07:00 Discontinued 5 units SUBQ TID AC Isosorbide Mononitrate E.r. [Imdur] Med 09/29/16 09:00 Discontinued 30 mg PO DAILY Metoclopramide [Reglan] Med 09/29/16 09:00 Discontinued 10 mg PO DAILY Nitroglycerin Med 09/28/16 19:07 Discontinued 0.5 inch TOP NOW ONE Ondansetron [Zofran] Med 09/28/16 22:01 Discontinued 4 mg IV Q4H PRN PRN Pantoprazole [Protonix] Med 09/29/16 07:00 Discontinued 40 mg PO DAILY@0700 Trazodone [Desyrel] Med 09/28/16 22:01 Discontinued 50 mg PO QHS Zolpidem [Ambien] Med 09/28/16 22:01 Discontinued 5 mg PO QHS Telemetry [OM.EQ] Routine Oth 09/28/16 22:01 Active Transfer/Admit Order [TRANSFER] Routine Transfer 09/28/16 20:22 Completed Result Diagrams: 10/01/16 06:15 10/02/16 06:15 - XRAY 1 XRAY: Bilateral XRAY Study: Chest Impression: See EMR Report XRAY Interpretation: CHF - ER Preliminary - CONSULTS/PCP/HOSPITALIST Notification #1 *Consult/PCP/Hospitalist*: Dr. Perez (Commercial Credit Analyst) Time Discussed: 19:03 Consult Disposition: other (Dr. Perez: Call hospitalist for pt admit) #2 Consult: Dr. Nunn (Hospitalist) Time Discussed: 19:50 Consult Disposition: Admit Departure - Departure Time of Disposition Decision: 18:59 DIAGNOSIS: CHF (congestive heart failure), ESRD (end stage renal disease) Disposition: ADMITTED INPATIENT 09 Certified Medical Emergency: Emergent Condition: Stable - Critical Care Note This patient required my direct & personal management of CC.: No This chart was documented by the indicated scribe, (Dallin Tamayo Scribe) and accurately reflects the services I performed and decisions made by me, Guero Govea MD, as attested by the provider's signature.
== END 2016-10-02 15:22 | disposition home or self-care (01) ==
LOC: ED 16:21 → 3N 21:01 → SUATTDRO 21:01 → 3N 21:37
PROVIDERS: ATTEND Internal Medicine